=== PATIENT | female | born 1945 | race Caucasian/White ===

== ENCOUNTER 2017-12-27 06:39 | Day surgery (SDC) | payer MEDICARE, BC ==
[2017-12-27] MEDS ORDERED: Lactated Ringers 1,000 ML IV SCH (06:45)
[2017-12-27] MEDS ORDERED: Sodium Chloride 0.9% 10 ML Syringe FLUSH PRN (06:45)
[2017-12-27] MEDS ORDERED: Midazolam 1 MG/ML 2 ML SDV IV ONE (07:50)
[2017-12-27] MEDS ORDERED: Atropine 0.4 MG/ML SDV IVPUSH ONE (07:50)
[2017-12-27] MEDS ORDERED: Propofol 200 MG/20 ML SDV IV ONE (07:50)
[2017-12-27] MEDS ORDERED: Ondansetron 4 MG/2 ML SDV IVPUSH ONE (07:50)
[2017-12-27] MEDS ORDERED: Simethicone Drops 40 MG/0.6 ML 30 ML Bottle ONE (08:21)
--- NOTE | 2017-12-27 08:29 | PREOP ---
ADMISSION DATE: 12/27/2017 CHIEF COMPLAINT: Need for followup endoscopy. HISTORY OF PRESENT ILLNESS: This is a 72-year-old white female who has a history of colon polyps. She is due for a followup colonoscopy. In addition, she has a history of Joseph esophagus and is due for followup endoscopy as well. She is without complaints. MEDICATIONS: 1. Levothyroxine 112 mcg tablets one per day. 2. Lexapro 20 mg one and a half tablets daily. 3. Lipitor 40 mg tablets daily. 4. Xanax 0.5 mg every 8 hours as needed for anxiety. 5. Prevacid 30 mg daily. ALLERGIES: She has no known drug allergies. PAST MEDICAL HISTORY: Significant for anxiety, colon polyps, depression, hyperlipidemia, hypothyroidism, Joseph esophagus, and atrophic gastritis. PAST SURGICAL HISTORY: Significant for colonoscopy, hysterectomy, and laparoscopic cholecystectomy. FAMILY HISTORY: Significant for hypertension and heart disease. SOCIAL HISTORY: She is , with 2 children, and 12 years of education. She is a former smoker. Denies any alcohol use. REVIEW OF SYSTEMS: Constitutional, HEENT, respiratory, cardiovascular, genitourinary, musculoskeletal, and skin are all negative. She does have some occasional abdominal pain. PHYSICAL EXAMINATION: GENERAL: This is a well-developed and well-nourished white female, appearing in no acute distress. HEENT: Grossly within normal limits. LUNGS: Clear to auscultation. HEART: Regular rate and rhythm. ABDOMEN: Soft and nontender. ASSESSMENT: 1. Personal history of colon polyps. 2. History of Joseph esophagus. PLAN: Upper and lower endoscopy. Procedure and risks explained to the patient to include bleeding, perforation, and infection. She expresses understanding, and she asked us to proceed. /[id number] /MODL
--- NOTE | 2017-12-27 08:38 | PCM.OPNOTE ---
- General Post-Op/Procedure Note Date of Surgery/Procedure: 12/27/17 Operative Procedure(s): egd with bx. c scope with bx Findings: gastroduodenitis esophagitis rectal polyps Pre Op Diagnosis: hx of Brian's esoph. hx of colon polyps Post-Op Diagnosis: gastroduodenitis. esophagitis. rectal polyps Anesthesia Technique: MAC (s) Primary Surgeon: Milind Lam Anesthesia Provider: Sherwin Negrete Pathology: stomach esophagus duodenum rectum Complications: None Condition: Good Free Text/Narrative:: see dictation
--- NOTE | 2017-12-27 09:28 | OR ---
DATE OF OPERATION: 12/27/2017 SURGEON: Milind Lam MD PROCEDURE PERFORMED: Upper endoscopy with biopsy and lower endoscopy with biopsy. PREOPERATIVE DIAGNOSES: Personal history of colon polyps and Joseph esophagus. POSTOPERATIVE DIAGNOSES: Gastroduodenitis, esophagitis, and rectal polyps. INDICATIONS FOR PROCEDURE: This 72-year-old white female with a known history of adenomatous colon polyps as well as Joseph esophagus presents now for followup endoscopy. DESCRIPTION OF PROCEDURE: After an excellent IV sedation was administered, the bite block was inserted. The flexible endoscope was passed without difficulty down the patient's esophagus into the stomach. Stomach was insufflated. Scope was passed through the pylorus to the second portion of the duodenum and slowly withdrawn. The following findings were noted. In the first portion of the duodenum, marked duodenitis, photo and biopsies were taken. Stomach gastritis was noted. Biopsies were taken, especially in the antrum. GE junction measured 35 cm and circumferential biopsies were taken as part of the surveillance for Joseph's. Remainder of the esophageal exam was unremarkable. Stomach was deflated. Scope was removed. The patient had a colonoscopy performed. Digital rectal exam was performed. No marked abnormality was noted. Flexible colonoscope was inserted and advanced to the cecum without difficulty. The prep was excellent. The following findings were noted: Ascending colon, unremarkable. Transverse colon, unremarkable. Descending colon, unremarkable. Sigmoid, unremarkable. Rectum, several hyperplastic appearing polyps encountered. Biopsies were taken and submitted in one container. The colon was deflated as the scope was removed. The patient tolerated the procedure well, and was taken to recovery in good condition. /[id number] /MODL
[2017-12-27 10:10] VITALS: BP 156/63
== END 2017-12-27 10:25 | disposition home or self-care (01) ==
LOC: FB.SDS 06:39
PROVIDERS: ATTEND Surgery
DX: Z12.11 Encounter for screening for malignant neoplasm of colon (principal); K62.1 Rectal polyp; K29.50 Unspecified chronic gastritis without bleeding; K29.80 Duodenitis without bleeding; K20.9 Esophagitis, unspecified; F32.9 Major depressive disorder, single episode, unspecified; E78.5 Hyperlipidemia, unspecified; E03.9 Hypothyroidism, unspecified; K21.9 Gastro-esophageal reflux disease without esophagitis; E78.2 Mixed hyperlipidemia; F41.9 Anxiety disorder, unspecified; Z86.010 Personal history of colon polyps; Z87.891 Personal history of nicotine dependence; Z79.899 Other long term (current) drug therapy
CPT/HCPCS: 00813; 43239; 45380; 88305; 88313; 88342; A9270; J0461; J2250; J2405; J2704; J7120

== ENCOUNTER 2023-02-21 06:53 | Day surgery (SDC) | payer MEDICARE, BC ==
[2023-02-21] MEDS ORDERED: Propofol 200 MG/20 ML SDV IV ONE (06:54)
[2023-02-21] MEDS ORDERED: Lidocaine 2% 5 ML SDV ONE (06:54)
[2023-02-21] MEDS ORDERED: Lidocaine 2% 5 ML SDV IV ONE (06:54)
[2023-02-21] MEDS ORDERED: Glycopyrrolate 0.2 MG/ML 5 ML MDV IV ONE (06:54)
[2023-02-21] MEDS ORDERED: Sodium Chloride 0.9% 10 ML Syringe FLUSH PRN (07:00)
[2023-02-21] MEDS: Lactated Ringers 1,000 ML IV SCH (07:30)
[2023-02-21 09:42] VITALS: BP 157/93; PULSE 76
== END 2023-02-21 09:46 | disposition home or self-care (01) ==
LOC: FB.SDS 06:53
PROVIDERS: ATTEND Surgery
DX: K29.50 Unspecified chronic gastritis without bleeding (principal); K29.80 Duodenitis without bleeding; K44.9 Diaphragmatic hernia without obstruction or gangrene; K31.89 Other diseases of stomach and duodenum; K21.00 Gastro-esophageal reflux disease with esophagitis, without bleeding; F41.9 Anxiety disorder, unspecified; M19.90 Unspecified osteoarthritis, unspecified site; F32.A Depression, unspecified; E78.5 Hyperlipidemia, unspecified; E03.9 Hypothyroidism, unspecified; F17.210 Nicotine dependence, cigarettes, uncomplicated; Z87.19 Personal history of other diseases of the digestive system; Z79.899 Other long term (current) drug therapy; Z79.890 Hormone replacement therapy; Z90.710 Acquired absence of both cervix and uterus; Z90.49 Acquired absence of other specified parts of digestive tract; R63.4 Abnormal weight loss
CPT/HCPCS: 00731; 88305; 88342; J2704; J3490; J7120

== ENCOUNTER 2023-05-07 09:23 | Emergency (ER) | payer MEDICARE, BC ==
[2023-05-07 09:40] LABS: BILIRUBIN,URINE NEGATIVE (NEGATIVE); GLUCOSE,URINE NORMAL (NORMAL); KETONES,URINE NEGATIVE (NEGATIVE); LEUKOCYTE ESTERASE,URINE NEGATIVE (NEGATIVE); NITRITE,URINE NEGATIVE (NEGATIVE); OCCULT BLOOD,URINE NEGATIVE (NEGATIVE); PROTEIN,URINE NEGATIVE (NEGATIVE); UROBILINOGEN,URINE NORMAL (NEGATIVE)
[2023-05-07 09:41] LABS: APPEARANCE,URINE CLEAR (CLEAR); BACTERIA,URINE FEW (NS); COLOR,URINE YELLOW (YELLOW); RBC,URINE 0-5 (0-5); SQUAMOUS EPITHELIAL CELLS,UR FEW (NS,R,O); WBC,URINE 0-5 (0-5)
[2023-05-07 10:10] LABS: BASOPHILS ABSOLUTE AUTO 0.1 x10-3/uL (0.0-0.1); BASOPHILS PERCENT AUTO 0.9 % (0.2-1.5); EOSINOPHILS ABSOLUTE AUTO 0.1 x10-3/uL (0.0-0.8); EOSINOPHILS PERCENT AUTO 1.4 % (0.6-8.1); HEMATOCRIT 38.8 % (34.2-48.2); HEMOGLOBIN 13.3 g/dL (11.4-15.5); LYMPHOCYTES ABSOLUTE AUTO 1.6 x10-3/uL (1.0-4.4); LYMPHOCYTES PERCENT AUTO 18.8 % (18.4-52.1); MEAN CORPUSCULAR HEMOGLOBIN 31.3 pg (23.9-33.9); MEAN CORPUSCULAR HGB CONC 34.3 g/dL (31.9-34.8); MEAN CORPUSCULAR VOLUME 91.5 fL (76.7-100.5); MEAN PLATELET VOLUME 8.4 fL (7.1-12.4); MONOCYTES ABSOLUTE AUTO 0.6 x10-3/uL (0.3-1.0); MONOCYTES PERCENT AUTO 6.5 % (4.4-15.7); NEUTROPHILS ABSOLUTE AUTO 6.3 x10-3/uL (1.5-6.3); NEUTROPHILS PERCENT AUTO 72.4 % (30.8-76.2); PLATELET COUNT,PLT 280 x10(3)uL (151-488); RED BLOOD CELL COUNT 4.24 x10(6)uL (3.60-5.20); RED CELL DISTRIBUTION WIDTH 13.4 % (12.3-16.5); WHITE BLOOD CELL COUNT,WBC 8.7 x10-3/uL (3.0-10.3)
[2023-05-07 10:11] LABS: BLOOD UREA NITROGEN,BUN 11 mg/dL (7-18); BUN/CREATININE RATIO 13.8 (9-20); CALCIUM 9.1 mg/dL (8.6-10.2); CARBON DIOXIDE,CO2 30 mmol/L (21-32); CHLORIDE,CL 102 mmol/L (100-110); CREATININE 0.8 mg/dL (0.55-1.02); EST CRCL DRUG DOSING (CG) 44.36 mL/min; ESTIMATED GFR 74 mL/min (>60); GLUCOSE RANDOM 98 mg/dL (80-116); POTASSIUM,K 3.9 mmol/L (3.5-5.3); SODIUM,NA 139 mmol/L (135-145)
[2023-05-07 10:14] LABS: LIPASE 63 U/L (16-77)
[2023-05-07 10:16] LABS: C-REACTIVE PROTEIN < 0.05 mg/dL (<0.33)
[2023-05-07 10:17] LABS: A/G RATIO 1.3; ALANINE AMINOTRANSFERASE,ALT 23 U/L (12-36); ALBUMIN 3.7 g/dL (3.2-4.6); ALKALINE PHOSPHATASE 67 IU/L (56-112); ASPARTATE AMNIOTRANSFERASE,AST 16 IU/L (5-25); BILIRUBIN TOTAL 0.5 mg/dL (0.1-1.3); PROTEIN TOTAL,TP 6.6 g/dL (6.0-8.0)
[2023-05-07] MEDS ORDERED: Iopamidol 755 Mg/ML 100 ML Bottle IV ONE (10:40)
[2023-05-07] MEDS ORDERED: Ketorolac 30 MG/ML SDV IVPUSH ONE (11:50)
[2023-05-07] MEDS ORDERED: Sodium Chloride 0.9% 10 ML Syringe FLUSH PRN (11:55)
[2023-05-07 12:11] VITALS: BP 165/78; PULSE 62
== END 2023-05-07 12:07 | disposition home or self-care (01) ==
LOC: FB.ED 09:23
DX: S39.011A Strain of muscle, fascia and tendon of abdomen, initial encounter (principal); K59.00 Constipation, unspecified; E78.00 Pure hypercholesterolemia, unspecified; E03.9 Hypothyroidism, unspecified; Z90.49 Acquired absence of other specified parts of digestive tract; Z79.899 Other long term (current) drug therapy
CPT/HCPCS: 36415; 74177; 80053; 81001; 83690; 85025; 86140; 93005; 96374; 99284; J1885; J3490; Q9967

== ENCOUNTER 2023-05-31 06:03 | Day surgery (SDC) | payer MEDICARE, BC ==
[2023-05-31] MEDS ORDERED: Propofol 200 MG/20 ML SDV IV ONE (06:04)
[2023-05-31] MEDS ORDERED: Lidocaine 2% 5 ML SDV IV ONE (06:04)
[2023-05-31] MEDS ORDERED: Lactated Ringers 1,000 ML IV SCH (06:15)
[2023-05-31] MEDS ORDERED: Sodium Chloride 0.9% 10 ML Syringe FLUSH PRN (06:15)
[2023-05-31] MEDS ORDERED: Simethicone Drops 40 MG/0.6 ML 30 ML Bottle PO ONE (07:09)
[2023-05-31 10:42] VITALS: BP 127/65; PULSE 57
== END 2023-05-31 09:15 | disposition home or self-care (01) ==
LOC: FB.SDS 06:03
PROVIDERS: ATTEND Surgery
DX: D12.6 Benign neoplasm of colon, unspecified (principal); K63.5 Polyp of colon; K62.1 Rectal polyp; K57.30 Diverticulosis of large intestine without perforation or abscess without bleeding; F41.9 Anxiety disorder, unspecified; F32.A Depression, unspecified; E78.5 Hyperlipidemia, unspecified; F17.210 Nicotine dependence, cigarettes, uncomplicated; Z90.49 Acquired absence of other specified parts of digestive tract; Z79.899 Other long term (current) drug therapy; Z79.890 Hormone replacement therapy
CPT/HCPCS: 00811; 45385; 88305; A9270; J2704; J7120

== ENCOUNTER → 2025-07-24 | Day surgery (SDC) | payer MEDICARE, BC ==
[~2025-07-24] MED LIST: Midazolam 1 MG/ML 2 ML SDV IV ONE; Propofol 200 MG/20 ML SDV IV ONE; Sodium Chloride 0.9% 10 ML Syringe FLUSH PRN; fentaNYL 100 MCG/2 ML SDV IV ONE
[2025-07-24] MEDS: Lactated Ringers 1,000 ML IV SCH (07:49)
[2025-07-24 10:15] VITALS: PULSE 51
[2025-07-24 10:18] VITALS: BP 160/70
== END | disposition home or self-care (01) ==
LOC: FB.SDS 07:08
PROVIDERS: ATTEND Surgery
DX: K29.50 Unspecified chronic gastritis without bleeding (principal); K29.80 Duodenitis without bleeding; K22.70 Barrett's esophagus without dysplasia; K44.9 Diaphragmatic hernia without obstruction or gangrene; K21.9 Gastro-esophageal reflux disease without esophagitis; E78.5 Hyperlipidemia, unspecified; F41.9 Anxiety disorder, unspecified; F32.A Depression, unspecified; F17.210 Nicotine dependence, cigarettes, uncomplicated; Z79.899 Other long term (current) drug therapy
CPT/HCPCS: 00731; 43239; 88305; 88342; 99100; A9270; J2003; J2250; J2704; J3010; J7120